=== PATIENT | female | born 1965 | race Caucasian/White ===

== ENCOUNTER 2023-08-24 19:36 | Emergency (ER) | payer BC, OTHER ==
[2023-08-24] MEDS ORDERED: Cyclobenzaprine 10 MG TAB ONE (20:11)
[2023-08-24] MEDS ORDERED: Acetaminophen 500 MG TAB ONE (20:12)
== END 2023-08-24 20:51 | disposition home or self-care (01) ==
LOC: CSHERS 19:36
DX: S01.01XA Laceration without foreign body of scalp, initial encounter (principal); W18.30XA Fall on same level, unspecified, initial encounter
CPT/HCPCS: 12002; 70450; 72125